=== PATIENT | male | born 1960 | race Caucasian/White ===

== ENCOUNTER 2025-09-24 07:54 | Day surgery (SDC) | payer MEDICARE, MEDICAID ==
[2025-09-24] MEDS ORDERED: Propofol 200 MG/20 ML SDV ONE (10:00)
== END 2025-09-24 11:34 | disposition home or self-care (01) ==
LOC: LB.SDS 07:54
PROVIDERS: ATTEND Surgery
DX: Z12.11 Encounter for screening for malignant neoplasm of colon (principal); D12.0 Benign neoplasm of cecum; D12.4 Benign neoplasm of descending colon; K64.9 Unspecified hemorrhoids; E11.9 Type 2 diabetes mellitus without complications; I10 Essential (primary) hypertension; Z80.0 Family history of malignant neoplasm of digestive organs; Z88.8 Allergy status to other drugs, medicaments and biological substances; Z88.0 Allergy status to penicillin; Z88.2 Allergy status to sulfonamides; Z79.84 Long term (current) use of oral hypoglycemic drugs; Z79.899 Other long term (current) drug therapy
CPT/HCPCS: 45385; 82947; J2704; J7030